=== PATIENT | male | born 1965 | race Caucasian/White ===

== ENCOUNTER 2021-06-10 17:10 | Emergency (ER) | payer BC ==
[~2021-06-10] VITALS: Ht 185 cm; Wt 97.0 kg
--- OUTSIDE RECORDS SUMMARY | 2021-06-10 17:16 | XMS REPORT | Encounter Summary ---
Author Author [facility] Organization [facility] Address Unknown Phone Unavailable Care Team Providers Care Public Address System Operator Name Role Phone Tatyana Scales MD PCP Encounter Details Care Team Description Date [place] [address] [place] [address] [address] [place], [place] [phone] Mixed hyperlipidemia; Low serum vitamin B12; Fatigue, unspecified type; Prediabetes; Low testosterone; Routine screening for STI (sexually transmitted infection) 05/05/2021 Lab [facility] [address] [place] [id number] Social History Date Tobacco Use Types Packs/Day Years Used Never Smoker Smokeless Tobacco: Former Quit: 06/21/2015 User Comments Alcohol Use Standard Drinks/Week Yes 0 (1 standard drink = 0.6 o z pure alcohol) Sex Assigned at Date Recorded Not on file documented as of this encounter Plan of Treatment Care Team Description Date Type Specialty Beni Gleaosn MD [address] [facility] [address] [place] [address] 06/29/2021 Office Visit Pulmonology Tatyana Scales MD [address] [facility] [address] [place], [place] [phone] 09/14/2021 Imaging Radiology Appointment Tatyana Scales MD [address] [facility] [address] [place], [place] [phone] 11/06/2021 Office Visit Primary Care documented as of this encounter Procedures Comments Procedure Name Priority Date/Time Associated Diag nosis TESTOSTERONE Routine 05/05/2021 Low testosteron e TOTAL+BIOAVAILABLE 9:36 AM MANAGED [employer] SALES CONSULTANT HSV TYPE 1 AND 2-SPECIFIC Routine 05/05/2021 Rout ine screening for STI IGG 9:36 AM MANAGED SEC[employer] SALES CONSULTANT (sexually transmitt ed infection) VITAMIN D, 25-HYDROXY Routine 05/05/2021 Fatigue, unspecified type 9:36 AM MANAGED SECURITY SALES CONSULTANT THYROID STIMULATING Routine 05/05/2021 Fatigue, u nspecified type HORMONE 9:36 AM MANAGED SECURITY SALES CONSULTANT RAPID PLASMA REAGIN Routine 05/05/2021 Routine sc reening for STI 9:36 AM MANAGED SECURITY SALES CONSULTANT (sexually transmitted infection) PSA SCREEN Routine 05/05/2021 Low testosteron e 9:36 AM MANAGED SECURITY SALES CONSULTANT LIPID PANEL Routine 05/05/2021 Mixed hyperlipi demia 9:36 AM MANAGED SECURITY SALES CONSULTANT HEPATITIS C ANTIBODY Routine 05/05/2021 Routine s creening for STI 9:36 AM MANAGED SECURITY SALES CONSULTANT (sexually transmitted infection) HEPATITIS B SURFACE Routine 05/05/2021 Routine sc reening for STI ANTIGEN 9:36 AM MANAGED SECURITY SALES CONSULTANT (sexually transmitt ed infection) HEPATITIS B SURFACE Routine 05/05/2021 Routine sc reening for STI ANTIBODY 9:36 AM MANAGED SECURITY SALES CONSULTANT (sexually transmitt ed infection) HEMOGLOBIN A1C Routine 05/05/2021 Prediabetes 9:36 AM MANAGED SECURITY SALES CONSULTANT COMPREHENSIVE METABOLIC Routine 05/05/2021 Fatigu e, unspecified type PANEL 9:36 AM MANAGED SECURITY SALES CONSULTANT COMPLETE BLOOD COUNT Routine 05/05/2021 Fatigue, unspecified type 9:36 AM MANAGED SECURITY SALES CONSULTANT CHLAMYDIA AND NEISSERIA Routine 05/05/2021 Routin e screening for STI GONORRHOEAE PCR 9:36 AM MANAGED SECURITY SALES CONSULTANT (sexually transmitt ed infection) B12/FOLATE Routine 05/05/2021 Low serum vitam in B12 9:36 AM MANAGED SECURITY SALES CONSULTANT documented in this encounter Results * Testosterone Total+Bioavailable (05/05/2021 9:36 AM MANAGED SECURITY SALES CONSULTANT) Testosterone 55 (L) ng/dL [facility] Bioavailable Comment: Reference Range: Males (50 - 69y): 95 - 285 Testosterone 29.8 % [facility] Bioavailable % Testosterone 186 (L) ng/dL [facility] Total Comment: This test was developed and its performance characteristics determined by [facility]. It has not been cleared or approved by the Food and Drug Administration. Reference Range: Adult Males >18 years 264 - 916 This [facility] LC/MS-MS method is currently certified by the CDC Hormone Standardization Program (HoST). Adult male reference interval is based on a population of healthy nonobese males (BMI <30) between 19 and 39 years old. Candace et.al. JCEM 2017,102;4116-4568 PMID: [id number]. Specimen Blood - Venous Narrative [facility] - 05/14/2021 10:07 AM MANAGED SECURITY SALES CONSULTANT Performed at: 01 - [facility] [address] [place] [id number] [employer] Supervisor: Juan Manuel Braxton MD, Phone: [phone] Performing Organization Address City/State/ZIP Code apoorva Number [facility] [address] [place], [place] [address] * Chlamydia and Neisseria gonorrhoeae PCR (05/05/2021 9:36 AM MANAGED SECURITY SALES CONSULTANT) Chlamydia Not Detected Not Detected [facility] trachomatis PCR Neisseria Not Detected Not Detected [facility] gonorrhoeae PCR SOURCE Urine [facility] Specimen Urine - Urine Narrative [facility] - 05/06/2021 2:01 PM MANAGED SECURITY SALES CONSULTANT This test was developed and its performance characteristics determined by [facility]. It has not been cleared or approved by the US Food and Drug Administration (FDA). This test is used for clinical purposes. It should not be regarded as investigational or for research. The laboratory is regulated under CLIA as qualified to perform high-complexity testing and accredited by the [employer] [place] [employer] (CAP). This test was developed and its performance characteristics determined by [facility]. It has not been cleared or approved by the [place] Food and Drug Administration (FDA). This test is used for clinical purposes. It should not be regarded as investigational or for research. The laboratory is regulated under CLIA as qualified to perform high-complexity testing and accredited by the [employer] [place] [employer] (CAP). Performing Organization Address City/[facility] Code P apoorva Number [id number] [phone] * Rapid Plasma Reagin (05/05/2021 9:36 AM MANAGED SECURITY SALES CONSULTANT) Pathologist [facility] RPR Nonreactive Nonreactive [facility] Specimen Blood - Venous Performing Organization Address [facility] P apoorva Number [facility] [address] [phone] * HSV Type 1 and 2-Specific IgG (05/05/2021 9:36 AM MANAGED SECURITY SALES CONSULTANT) Pathologist [facility] HSV 2 IgG Type 15.40 (H) 0.00 - 0.90 index [facility] Specific Comment: Negative <0.91 Equivocal 0.91 - 1.09 Positive >1.09 Note: Negative indicates no antibodies detected to HSV-2. Equivocal may suggest early infection. If clinically appropriate, retest at later date. Positive indicates antibodies detected to HSV-2. HSV 1 IgG Type <0.91 0.00 - 0.90 index [facility] Specific Comment: Negative <0.91 Equivocal 0.91 - 1.09 Positive >1.09 Note: Negative indicates no antibodies detected to HSV-1. Equivocal may suggest early infection. If clinically appropriate, retest at later date. Positive indicates antibodies detected to HSV-1. Specimen Blood - Venous Narrative [facility] - 05/08/2021 4:07 PM MANAGED SECURITY SALES CONSULTANT Performed at: 01 - [address] [id number] [employer] Supervisor: Olivia Linn MD, Phone: [phone] Performing Organization Address [facility]/ZIP Code P apoorva Number [facility] [address] [place] [address] * Hepatitis C Antibody (05/05/2021 9:36 AM MANAGED SECURITY SALES CONSULTANT) Pathologist [facility] Hepatitis C Ab Nonreactive Nonreactive [facility] Specimen Blood - Venous Performing Organization Address [facility] Code P apoorva Number [facility] [address] [place], [place] [address] * Hepatitis B Surface Antigen (05/05/2021 9:36 AM MANAGED SECURITY SALES CONSULTANT) Hepatitis B Nonreactive Nonreactive [facility] Surface Ag Specimen Blood - Venous Performing Organization Address [facility] P apoorva Number [facility] [address] [place], [place] [address] * Hepatitis B Surface Antibody (05/05/2021 9:36 AM MANAGED SECURITY SALES CONSULTANT) Hepatitis B Nonreactive Nonreactive [facility] Surface Ab Specimen Blood - Venous Performing Organization Address [facility] P apoorva Number [facility] [address] [phone] * PSA Screen (05/05/2021 9:36 AM MANAGED SECURITY SALES CONSULTANT) PSA Screen 0.56 0.00 - 4.00 ng/mL [facility] Specimen Blood Narrative [facility] - 05/05/2021 9:25 PM MANAGED SECURITY SALES CONSULTANT Method for [facility] is [employer]. Performing Organization Address [facility] P apoorva Number [facility] [address] [phone] * Vitamin D, 25-Hydroxy (05/05/2021 9:36 AM MANAGED SECURITY SALES CONSULTANT) Vitamin D 23 (L) 30 - 100 ng/mL [facility] 25-Hydroxy Specimen Blood - Venous Narrative [facility] - 05/05/2021 7:33 PM MANAGED SECURITY SALES CONSULTANT Vitamin D Ref Range =>21 Years Deficiency: <20 ng/mL Insufficiency: 20 - <30 ng/mL Sufficiency: 30 - 100 ng/mL Toxicity Possible: >100 ng/mL Performing Organization Address [facility] P apoorva Number [facility] [id number] [phone] * Thyroid Stimulating Hormone (05/05/2021 9:36 AM MANAGED SECURITY SALES CONSULTANT) Thyroid 2.21 0.55 - 4.78 uIU/mL [facility] Stimulating Hormone Specimen Blood - Venous Narrative [facility] - 05/05/2021 8:04 PM MANAGED SECURITY SALES CONSULTANT Reference range updated 04/05/21 with [facility] conversion to [employer] instrumentation. Performing Organization Address [facility] Code P apoorva Number [facility] [address] [place], [place] [address] * Hemoglobin A1C (05/05/2021 9:36 AM MANAGED SECURITY SALES CONSULTANT) Hemoglobin A1C 5.6 4.0 - 5.6 % [facility] Specimen Blood - Venous Performing Organization Address City/State/ZIP Code P apoorva Number [facility] [address] [place], [place] [address] * Comprehensive Metabolic Panel (05/05/2021 9:36 AM MANAGED SECURITY SALES CONSULTANT) Sodium 140 136 - 145 mEq/L [facility] Potassium 4.6 3.4 - 5.1 mEq/L [facility] Chloride 108 (H) 98 - 107 mEq/L [facility] Carbon Dioxide 26 20 - 31 mEq/L [facility] Anion Gap 6 5 - 17 mmol/L [facility] Anion Gap 6 mmol/L [facility] Calcium 9.2 8.3 - 10.6 mg/dL [facility] Glucose 89 70 - 100 mg/dL [facility] Protein Total 6.8 5.7 - 8.2 g/dL [facility] Serum Albumin 4.7 3.5 - 5.0 g/dL [facility] Alkaline 117 (H)Comment: Reference 46 - 116 U/L [facility] Phosphatase range updated 04/05/21 with [facility] conversion to [employer] instrumentation. Alanine 34 0 - 49 U/L [facility] Aminotransferas e Aspartate 27Comment: Reference range 0 - 34 U/L [facility] L Aminotransferas updated 04/05/21 with [facility] e conversion to [employer] instrumentation. Bilirubin Total 0.70 0.30 - 1.20 mg/dL [facility] Blood Urea 22 9 - 23 mg/dL [facility] Nitrogen Creatinine 1.00 0.70 - 1.30 mg/dL [facility] eGFR Female AA 69.5 60.0 - 200.0 [facility] mL/min/1.73m*2 eGFR Female 57.4 (L) 60.0 - 200.0 [facility] Non-AA mL/min/1.73m*2 eGFR Male AA 93.7 60.0 - 200.0 [facility] mL/min/1.73m*2 eGFR Male 77.3 60.0 - 200.0 [facility] Non-AA mL/min/1.73m*2 Specimen Blood - Venous Performing Organization Address [facility] P apoorva Number [facility] [address] [phone] * Complete Blood Count (05/05/2021 9:36 AM MANAGED SECURITY SALES CONSULTANT) WBC 4.68 4.00 - 11.00 TH/uL [facility] RBC 4.92 4.31 - 5.84 mil/uL [facility] Hemoglobin 14.9 13.0 - 17.0 g/dL [facility] Hematocrit 45 40 - 50 % [facility] MCV 92 80 - 99 fL [facility] MCH 30 27 - 34 pg [facility] MCHC 33 32 - 36 % [facility] RDW 14.0 9.0 - 14.5 % [facility] Platelet Count 276 140 - 400 Th/uL [facility] MPV 8.8 (L) 9.4 - 12.3 fL [facility] Nucleated RBCs 0 0 - 0 /100 WBC [facility] Specimen Blood - Venous Performing Organization Address [facility] P apoorva Number [facility] [address] [phone] * B12/Folate (05/05/2021 9:36 AM MANAGED SECURITY SALES CONSULTANT) Vitamin B12 608 211 - 911 pg/mL [facility] Folate 10.65 5.38 - 24.00 ng/mL [facility] Specimen Blood - Venous Performing Organization Address [facility] P apoorva Number [facility] [address] [phone] * Lipid Panel (05/05/2021 9:36 AM MANAGED SECURITY SALES CONSULTANT) Cholesterol 293 (H) 100 - 200 mg/dL [facility] HDL Cholesterol 47.0Comment: Reference range 40.0 - 60.0 mg/d L [facility] updated 04/05/21 with [facility] conversion to [employer] instrumentation. Non-HDL 246 (H) 0 - 130 mg/dL [facility] Cholesterol Triglycerides 104 0 - 150 mg/dL [facility] LDL Cholesterol 225.2 (H) 0 - 99 mg/dL [facility] Cholesterol/HDL 6.2 (H) 0.0 - 4.5 [facility] Ratio Hours 12 H [facility] Postprandial Specimen Blood - Venous Performing Organization Address [facility]/ZIP Code P apoorva Number [facility] [address] [place], [place] [address] documented in this encounter Visit Diagnoses Diagnosis Mixed hyperlipidemia Low serum vitamin B12 Fatigue, unspecified type Prediabetes Other abnormal glucose Low testosterone Routine screening for STI (sexually tra nsmitted infection) Screening examination for venereal dise ase documented in this encounter Care Teams Start Date End Date Public Address System Operator Relationship Specialty 10/12/17 Tatyana Scales MD PCP - [facility] [address] [address] documented as of this encounter
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
--- OUTSIDE RECORDS SUMMARY | 2021-06-10 17:16 | XMS REPORT | Clinical Summary ---
Author Author [facility] Address Unknown Phone Unavailable Care Team Providers Care Senior Industrial Engineer Name Role Phone Tatyana Scales MD PCP Allergies No known active allergies Medications End Date Status Medication Sig Dispensed Refills Start Date Active CONTINUOUS POSITIVE nightly. 0 AIRWAY PRESSURE, CPAP, Active CIALIS 20 mg Take 1 tablet 8 tablet 11 tabletIndications: Other (20 mg total) 9 male erectile dysfunction by mouth daily as needed for erectile dysfunction. Active testosterone (ANDROGEL) 1 APPLY 1 0 03/14 % (50 mg/5 gram) GlPk PACKET 0 Tube TOPICALLY ONCE DAILY Active aspirin 81 MG EC tablet Take 81 mg by 0 mouth daily. Active omeprazole (PRILOSEC) 10 Take 10 mg by 0 MG capsule mouth daily. Active esomeprazole (NEXIUM) 20 0 MG capsuleIndications: Erosive esophagitis 05/05/2022 Active valACYclovir (VALTREX) Take 1 tablet 90 tablet 3 1 500 MG tabletIndications: (500 mg 1 CHRONIC SUPPRESSIVE total) by TREATMENT OR PROPHYLAXIS, mouth daily. GENITAL HERPES 05/05/2022 Active tamsulosin (FLOMAX) 0.4 Take 1 90 capsule 3 mg capIndications: Lower capsule (0.4 1 urinary tract symptoms mg total) by mouth daily. Active benzonatate (TESSALON) Take 1-2 90 capsule 0 100 MG capsule capsules 1 (100-200 mg total) by mouth 3 (three) times a day as needed for cough. Active ergocalciferol (VITAMIN Take 1 12 capsule 0 D2) 1,250 mcg (50,000 capsule 1 unit) capsuleIndications: (50,000 Units Low vitamin D level total) by mouth weekly. Active rosuvastatin (CRESTOR) 10 Take 1 tablet 90 tablet 3 MG tabletIndications: (10 mg total) 1 Mixed hyperlipidemia by mouth daily. Active Problems Problem Noted Date Personal history of COVID-19 05/11/2021 Overview: Formatting of this note might be differ ent from the original. Apr 2021 Lower urinary tract symptoms 05/05/2021 Statin declined 05/05/2020 Class 1 obesity due to excess calories with serious c omorbidity and body 05/07/2019 mass index (BMI) of 31.0 to 31.9 in twin lt Last Assessment & Plan: Formatting of this note might be differ ent from the original. Encouraged healthy diet, exercise and w eight loss. Lesion of skin of scalp 05/07/2019 Overview: Formatting of this note might be differ ent from the original. Left scalp with ~1cm flesh colored hype rkeratotic lesion L ast Assessment & Plan: Formatting of this note might be differ ent from the original. Proceed with continued observation - re check in 6 months - if changing plan for cryotherapy. Prediabetes 11/08/2018 Last Assessment & Plan: Formatting of this note might be differ ent from the original. Encouraged healthy diet, exercise and w eight loss. Primary osteoarthritis of left knee 11/03/2018 Overview: Formatting of this note might be differ ent from the original. MRI August 2018 showed tricompartmental OA. Received steroid injection but patient didn't think it helped. Unable to take oral NSAIDs d/t esophagitis. Has seen ortho x2 L ast Assessment & Plan: Formatting of this note might be differ ent from the original. Trial topical diclofenac gel Patient requests 2nd orthopedic opinion - requesting referral to Dr. Roberto Sabillon - referral placed Erosive esophagitis 07/24/2018 Overview: Formatting of this note might be differ ent from the original. EGD 06/23/18 - Grade 2 esophagitis in t he gastroesophageal junction compatible with esophagitis. Ring in the gastroesophageal junction. (Biopsy). Prilosec 40mg po q am befor e meal x 2 mos. 3- Zantac 300mg po qhs x 2 mos EGD 09/22/18 - Normal mucosa in the whol e esophagus. Few Aspirin-induced superficial erosions in fundus and prox imal body w/o bleeding. Plan: 1- Reduce the dose of Prilosec to 20mg po qd + Zantac 150mg po qhs. L ast Assessment & Plan: Formatting of this note might be differ ent from the original. Patient reports symptoms improved Idiopathic peripheral neuropathy 06/01/2018 Overview: Formatting of this note might be differ ent from the original. He has seen neurology (May 2018) for hi s neuropathy, refuses to take Cymbalta. Previously on Gabapentin but didn't feel it was helpful. L ast Assessment & Plan: Formatting of this note might be differ ent from the original. Patient declines Cymbalta. Previously o n Gabapentin but didn't feel it was helpful. Continue to monitor Bilateral low back pain with bilateral sciatica 05/14 Overview: Formatting of this note is different fr om the original. Lumbar MRI 06/30/18 1. No spinal canal stenosis. 2. Multilevel disc disease and facet ar throsis resulting in multilevel variable neural foraminal stenosis as d etailed above. No high-grade neural foraminal stenosis. L ast Assessment & Plan: Formatting of this note might be differ ent from the original. Stable History of shingles 02/08/2018 Last Assessment & Plan: Formatting of this note might be differ ent from the original. Recommended Shingrix Low serum vitamin B12 12/08/2017 Last Assessment & Plan: Formatting of this note might be differ ent from the original. Patient states he is no longer taking s upplementation NELLI on CPAP 12/08/2017 Overview: Formatting of this note might be differ ent from the original. Following with Dr. Stark in pulmonology L ast Assessment & Plan: Formatting of this note might be differ ent from the original. Referred to pulmonology Vasovagal syncope 11/30/2017 Last Assessment & Plan: Formatting of this note might be differ ent from the original. No recent episodes History of seizures as a child 11/30/2017 Last Assessment & Plan: Formatting of this note might be differ ent from the original. H/O seizure in childhood. Last reported seizure ~ 40 yrs ago. Described as having grand-mal features. Never medica mily. Underlying cause was never determined. Low testosterone 10/12/2017 Last Assessment & Plan: Formatting of this note might be differ ent from the original. Referred to urology Mixed hyperlipidemia 10/12/2017 Overview: Formatting of this note might be differ ent from the original. The 10-year ASCVD risk score (Juancho mansfield, et al., 2013) is: 9.9% Values used to calculate the score: Age: 55 years Sex: Male Is Non- : No Diabetic: No Tobacco smoker: No Systolic Blood Pressure: 128 mmHg Is BP treated: No HDL Cholesterol: 34 mg/dL Total Cholesterol: 246 mg/dL Last Assessment & Plan: Formatting of this note might be differ ent from the original. Declines statin Other male erectile dysfunction 10/12/2017 Resolved Problems Problem Noted Date Resolved Date Nausea, vomiting and diarrhea 11/30/2017 12/01/19 18 Last Assessment & Plan: Formatting of this note might be differ ent from the original. Sudden onset of acute GI abnormalities. No hematemesis, melena or hematochezia. Plan - GI pathogen panel pending - Anti-emetics (no diarrhea or vomiting since admission) - E-lyte replacement protocol - IVF Bradycardia 11/30/2017 11/30/2017 Last Assessment & Plan: Formatting of this note might be differ ent from the original. Bradycardia w/ a syncopal event, vasova gal vs cardiogenic ? May need to potentially consider cardio logy evaluation, to be re-evaluated in am after patient is hydrated and see n by neurology Encounters Care Team Description Date Type Specialty Marifer Boss, atm manager Refill 05/13/2021 Refill Primary Care Marifer Boss RN 05/12/2021 Telephone Primary Care Marifer Boss RN 05/11/2021 Telephone Primary Care Tatyana Scales MD Mixed hyperlipidemia; Low serum vitamin B12; Fatigue, unspecified type; Prediabetes; Low testosterone; Routine screening for STI (sexually transmitted infection) 05/05/2021 Lab Lab Tatyana Scales MD Cough (Primary Dx); Mixed hyperlipidemia; Idiopathic peripheral [...] Erosive esophagitis; Vaccine counseling 05/05/2021 Office Visit Primary Care Beni Gleason MD 04/13/2021 Telephone Pulmonology from Last 3 Months Immunizations Name Administration Dates Next Due Tdap 10/12/2016 Family History Medical History Relation Name Comments Diabetes Brother Heart disease Brother Kidney disease Brother Heart disease Father Heart disease Mother Kidney disease Sister Relation Name Status Comments Brother Father Mother Sister Social History Date Tobacco Use Types Packs/Day Years Used Never Smoker Smokeless Tobacco: Former Quit: 06/21/2015 User Comments Alcohol Use Standard Drinks/Week Yes 0 (1 standard drink = 0.6 o z pure alcohol) Sex Assigned at Date Recorded Not on file Last Filed Vital Signs Reading Time Taken Comments Vital Sign 118/86 05/05/2021 8:01 AM FAST BRIM POUNCER Blood Pressure 74 05/05/2021 8:01 AM FAST BRIM POUNCER Pulse 36.2 C (97.2 F) 11/03/2020 8:03 AM CDT Temperature 16 01/21/2021 9:43 AM CDT Respiratory Rate 98% 05/05/2021 8:01 AM FAST BRIM POUNCER Oxygen Saturation - - Inhaled Oxygen Concentration 108.9 kg (240 lb) 05/05/2021 8:01 AM FAST BRIM POUNCER Weight 185.4 cm (6' 1") 05/05/2021 8:01 AM FAST BRIM POUNCER Height 31.66 05/05/2021 8:01 AM FAST BRIM POUNCER Body Mass Index Plan of Treatment Care Team Description Date Type Specialty Beni Gleason MD [address] [facility] [address] [place] [address] 06/29/2021 Office Visit Pulmonology Tatyana Scales MD [address] [place] [address] 09/14/2021 Imaging Radiology Appointment Tatyana Scales MD [address] [place] [address] 11/06/2021 Office Visit Primary Care Health Maintenance Due Date Last Done Comments CLAIR-19 Vaccine (1) 1977 Zoster Vaccine# (1 of 2) 2015 EGD 12/22/2018 09/22/2018, 06/23/2018 Influenza Vaccine (#1) 2021 Colorectal Screening via 11/11/2022 11/11/2017, Colonoscopy 11/11/2017 Td/Tdap# 10/12/2026 10/12/2016 Hepatitis C Screen Completed 05/05/2021, 11/03/2018 Pneumococcal Vaccine: Aged Out No longer eligib le based on patient's age to Pediatrics (0 to 5 Years) complete this topic and At-Risk Patients (6 to 64 Years) Procedures Comments Procedure Name Priority Date/Time Associated Diag nosis TESTOSTERONE Routine 05/05/2021 Low testosteron e TOTAL+BIOAVAILABLE 9:36 AM FAST BRIM POUNCER CHLAMYDIA AND NEISSERIA Routine 05/05/2021 Routin e screening for STI GONORRHOEAE PCR 9:36 AM FAST BRIM POUNCER (sexually transmitt ed infection) RAPID PLASMA REAGIN Routine 05/05/2021 Routine sc reening for STI 9:36 AM FAST BRIM POUNCER (sexually transmitted infection) HSV TYPE 1 AND 2-SPECIFIC Routine 05/05/2021 Rout ine screening for STI IGG 9:36 AM FAST BRIM POUNCER (sexually transmitt ed infection) HEPATITIS C ANTIBODY Routine 05/05/2021 Routine s creening for STI 9:36 AM FAST BRIM POUNCER (sexually transmitted infection) HEPATITIS B SURFACE Routine 05/05/2021 Routine sc reening for STI ANTIGEN 9:36 AM FAST BRIM POUNCER (sexually transmitt ed infection) HEPATITIS B SURFACE Routine 05/05/2021 Routine sc reening for STI ANTIBODY 9:36 AM FAST BRIM POUNCER (sexually transmitt ed infection) PSA SCREEN Routine 05/05/2021 Low testosteron e 9:36 AM FAST BRIM POUNCER VITAMIN D, 25-HYDROXY Routine 05/05/2021 Fatigue, unspecified type 9:36 AM FAST BRIM POUNCER THYROID STIMULATING Routine 05/05/2021 Fatigue, u nspecified type HORMONE 9:36 AM FAST BRIM POUNCER HEMOGLOBIN A1C Routine 05/05/2021 Prediabetes 9:36 AM FAST BRIM POUNCER COMPREHENSIVE METABOLIC Routine 05/05/2021 Fatigu e, unspecified type PANEL 9:36 AM FAST BRIM POUNCER COMPLETE BLOOD COUNT Routine 05/05/2021 Fatigue, unspecified type 9:36 AM FAST BRIM POUNCER B12/FOLATE Routine 05/05/2021 Low serum vitam in B12 9:36 AM FAST BRIM POUNCER LIPID PANEL Routine 05/05/2021 Mixed hyperlipi demia 9:36 AM FAST BRIM POUNCER HERPES I & II - ON BD-MAX Routine 05/05/2021 Melody iza lesion, male SWAB 9:27 AM FAST BRIM POUNCER from Last 3 Months Results * Testosterone Total+Bioavailable (05/05/2021 9:36 AM FAST BRIM POUNCER) Testosterone 55 (L) ng/dL [facility] Bioavailable Comment: [...] <30) between 19 and 39 years old. Candace, et.al. JCEM 2017,102;[id number] PMID: [id number]. Specimen Blood - Venous Narrative [facility] - 05/14/2021 10:07 AM FAST BRIM POUNCER Performed at: 01 - [facility] [address] [place] [id number] Filler Shredder Machine: Juan Manuel Braxton MD, Phone: [phone] Performing Organization Address City/State/ZIP Code P apoorva Number [facility] [address] [address] 20 * HSV Type 1 and 2-Specific IgG (05/05/2021 9:36 AM FAST BRIM POUNCER) Pathologist [facility] HSV 2 IgG Type 15.40 (H) 0.00 [...] Venous Narrative [facility] - 05/08/2021 4:07 PM FAST BRIM POUNCER Performed at: [address] [place] [id number] Filler Shredder Machine: Olivia Linn MD, Phone: [phone] Performing Organization Address [facility]/ZIP Code P apoorva Number [id number] [address] [address] 20 * Vitamin D, 25-Hydroxy (05/05/2021 9:36 AM FAST BRIM POUNCER) [facility] Vitamin D 23 (L) 30 - 100 ng/mL [facility] 25-Hydroxy Specimen Blood - Venous Narrative [facility] - 05/05/2021 7:33 PM FAST BRIM POUNCER Vitamin D Ref Range =>21 Years Deficiency: <20 ng/mL Insufficiency: 20 - <30 ng/mL Sufficiency: 30 - 100 ng/mL Toxicity Possible: >100 ng/mL Performing Organization Address [facility] Code P apoorva Number [id number] [place], [place] [address] * Thyroid Stimulating Hormone (05/05/2021 9:36 AM FAST BRIM POUNCER) Pathologist [facility] Thyroid 2.21 0.55 - 4.78 uIU/mL [facility] Stimulating Hormone Specimen Blood - Venous Narrative [facility] - 05/05/2021 8:04 PM FAST BRIM POUNCER Reference range updated 04/05/21 with [facility] conversion to [employer] instrumentation. Performing Organization Address City/[facility] Code P apoorva Number [id number] [place], [place] [address] * Rapid Plasma Reagin (05/05/2021 9:36 AM FAST BRIM POUNCER) RPR Nonreactive Nonreactive [facility] Specimen Blood - Venous Performing Organization Address [facility] P apoorva Number [id number] [place], [place] [address] * PSA Screen (05/05/2021 9:36 AM FAST BRIM POUNCER) PSA Screen 0.56 0.00 - 4.00 ng/mL [facility] Specimen Blood Narrative [facility] - 05/05/2021 9:25 PM FAST BRIM POUNCER Method for [facility] is [employer]. Performing Organization Address [facility] P apoorva Number [id number] [place], [place] [address] * Lipid Panel (05/05/2021 9:36 AM FAST BRIM POUNCER) Cholesterol 293 (H) 100 - 200 mg/dL [facility] HDL Cholesterol 47.0Comment: Reference range 40.0 - 60.0 mg/d L [facility] updated 04/05/21 with HS conversion to [employer] instrumentation. Non-HDL 246 (H) 0 - 130 mg/dL [facility] Cholesterol Triglycerides 104 0 - 150 mg/dL [facility] LDL Cholesterol 225.2 (H) 0 - 99 mg/dL [facility] Cholesterol/HDL 6.2 (H) 0.0 - 4.5 [facility] Ratio Hours 12 H [facility] Postprandial Specimen Blood - Venous Performing Organization Address [facility] Code P apoorva Number [id number] [place], [place] [address] * Hepatitis C Antibody (05/05/2021 9:36 AM FAST BRIM POUNCER) Hepatitis C Ab Nonreactive Nonreactive [facility] Specimen Blood - Venous Performing Organization Address [facility] Code P apoorva Number [id number] [place], [place] [address] * Hepatitis B Surface Antigen (05/05/2021 9:36 AM FAST BRIM POUNCER) Hepatitis B Nonreactive Nonreactive [facility] Surface Ag Specimen Blood - Venous Performing Organization Address [facility]/ZIP Code P apoorva Number [id number] [address] [place], [place] [address] * Hepatitis B Surface Antibody (05/05/2021 9:36 AM FAST BRIM POUNCER) Hepatitis B Nonreactive Nonreactive [facility] Surface Ab Specimen Blood - Venous Performing Organization Address City/[facility] Code P apoorva Number [id number] [place], [place] [address] * Hemoglobin A1C (05/05/2021 9:36 AM FAST BRIM POUNCER) Hemoglobin A1C 5.6 4.0 - 5.6 % [facility] Specimen Blood - Venous Performing Organization Address City/[facility] P apoorva Number [facility] [address] [place] [address] 11 * Comprehensive Metabolic Panel (05/05/2021 9:36 AM FAST BRIM POUNCER) Sodium 140 136 - 145 mEq/L [facility] [...] U/L [facility] Phosphatase range updated 04/05/21 with [facility] conversion to Siem[employer] [address] instrumentation. Alanine 34 0 - 49 U/L [facility] Aminotransferas e Aspartate 27Comment: Reference range 0 - 34 U/L [facility] L Aminotransferas updated 04/05/21 with [facility] e conversion to [employer] instrumentation. [...] Specimen Blood - Venous Performing Organization Address City/[facility]/ZIP Code P [facility] Number [facility] [address] [place] [address] 11 * Complete Blood Count (05/05/2021 9:36 AM FAST BRIM POUNCER) WBC 4.68 4.00 - 11.00 TH/uL [facility] [...] Specimen Blood - Venous Performing Organization Address City/[facility] Code P [facility] Number [facility] [address] [place] [address] 11 * Chlamydia and Neisseria gonorrhoeae PCR (05/05/2021 9:36 AM FAST BRIM POUNCER) Chlamydia Not Detected Not Detected [facility] trachomatis PCR Neisseria Not Detected Not Detected [facility] gonorrhoeae PCR SOURCE Urine [facility] Specimen Urine - Urine Narrative [facility] - 05/06/2021 2:01 PM FAST BRIM POUNCER This test was developed and its performance characteristics determined by [facility]. It has not been cleared or approved by the US Food and Drug Administration (FDA). This test is used for clinical purposes. It should not be regarded as investigational or for research. The laboratory is regulated under CLIA as qualified to perform high-complexity testing and accredited by the [employer] (CAP). This test was developed and its performance characteristics determined by [facility]. It has not been cleared or approved by the [place] Food and Drug Administration (FDA). This test is used for clinical purposes. It should not be regarded as investigational or for research. The laboratory is regulated under CLIA as qualified to perform high-complexity testing and accredited by the [employer] (CAP). Performing Organization Address City/State/ZIP Code P apoorva Number [facility] [address] [place], [place] [address] * B12/Folate (05/05/2021 9:36 AM FAST BRIM POUNCER) Vitamin B12 608 211 - 911 pg/mL [facility] Folate 10.65 5.38 - 24.00 ng/mL [facility] Specimen Blood - Venous Performing Organization Address City/State/ZIP Code P apoorva Number [facility] [address] [place] [address] 11 * HERPES I & II - ON BD-MAX SWAB (05/05/2021 9:27 AM FAST BRIM POUNCER) Specimen Penis Narrative [facility] - 05/08/2021 7:32 AM FAST BRIM POUNCER MOLECULAR PATHOLOGY REPORT HSV 1 and 2 by Sarah Case #: [id number] Final: 05/08/2021 PatientProviPHILLIP CheungDOB: 1965 (Age: 56) M Phone:Outside ID # ([id number]):[id number] By:Tatyana Scales M.D.Collected:05/05/2021 Received:05/06/2021[facility] HSV-1 AND HSV-2 PCR HSV-1 DNA NOT [...] and its performance characteristics determined by the [facility] Molecular Laboratory. It has not been [...] high complexity clinical laboratory testing. Performed by: [facility], [address] [place] [address], CLIA [id number] Nelson Feliciano MT (ASCP) CM Report Electronically Signed Out By Specimen Received: HSV 1 and 2 Performing Organization Address City/State/ZIP Code P apoorva Number [facility] [address] [place], [place] [address] [address] from Last 3 Months Insurance Type Payer Benefit Subscriber ID Effective Phone Address Plan / Dates Group [facility] OUT OF [id number] 2004-P [id number] [place] [address] 6 Phillip Escobar Personal/F Self 1965 [address] (Home) [place], [place] [address] Phillip Escobar Personal/F Self 1965 [address] [place] (Home) [place] [address] 6 Advance Directives For more information, please contact: [phone] Patient Automobile Wrecker Explanation Type Date Recorded Advance Directives and Living Will Power of Labor Crew Supervisor Health Care Directive Date Inactivated Comments Code Status Date Activated 09/22/2018 10:37 AM Full Code 09/22/2018 7:37 AM 06/23/2018 6:05 PM Full Code 06/23/2018 2:09 PM 11/30/2017 7:31 PM Full Code 11/30/2017 5:32 AM Care Teams Start Date End Date Senior Industrial Engineer Relationship Specialty 10/12/17 Tatyana Scales MD PCP - General Family [id number] [facility] [address] [place], [place] [address]
--- OUTSIDE RECORDS SUMMARY | 2021-06-10 17:16 | XMS REPORT | Encounter Summary ---
Author Author [facility] Organization [facility] Address Unknown Phone Unavailable Care Team Providers Care Machine Sole Leveler Name Role Phone Tatyana Scales MD PCP Encounter Details Care Team Description Date Type Department Marifer Boss RN 05/11/2021 Telephone [facility] Primar y Care - [place] [employer] [address] [facility] [address] [place] [address] Social History Date Tobacco Use Types Packs/Day Years Used Never Smoker Smokeless Tobacco: Former Quit: 06/21/2015 User Comments Alcohol Use Standard Drinks/Week Yes 0 (1 standard drink = 0.6 o z pure alcohol) Sex Assigned at Date Recorded Not on file documented as of this encounter Miscellaneous Notes * Telephone Encounter - Tatyana Scales MD - 05/11/2021 9:50 AM DIGITAL MEDIA ANALYST In non-hospitalized patients, we do not treat COVID-19 withdexamethasone,pre dnisone, or other corticosteroids Sent Rx for tessalon perles. He is eligible for monoclonal antibody treatment if he is interested. If he develops chest pain, new or worsening shortness of breath, dizziness or co nfusion he needs to go to the ER. TAL MEDIA ANALYST * Telephone Encounter - Marifer Boss RN - 05/11/2021 9:34 AM DIGITAL MEDIA ANALYST Pt calling stating he has tested positive for covid. Spoke with the pt and he stated he tested positive for covid yesterday and has a terrible cough and would like a prescription sent in of tessalon perles and dex amethasone. Let the pt know that we will get this request sent to Dr. Scales a nd will call the pt back. The pt stated he wants this sent in to his [facility] in [place], [place]. TAL MEDIA ANALYST documented in this encounter Plan of Treatment Care Team Description Date Type Specialty Beni Gleason MD [address] [facility] [address] [place] [address] 06/29/2021 Office Visit Pulmonology Tatyana Scales MD [address] [place] [address] 09/14/2021 Imaging Radiology Appointment Tatyana Scales MD [address] [place], [place] [id number] 11/06/2021 Office Visit Primary Care documented as of this encounter Visit Diagnoses Diagnosis Personal history of COVID-19 documented in this encounter Care Teams Start Date End Date Machine Sole Leveler Relationship Specialty 10/12/17 Tatyana Scales MD PCP - General [facility] [address] [facility] [address] [place], [place] [id number] documented as of this encounter
--- OUTSIDE RECORDS SUMMARY | 2021-06-10 17:16 | XMS REPORT | Encounter Summary ---
Author Author [facility] Organization [facility] Address Unknown Phone Unavailable Care Team Providers Care Illuminator Name Role Phone Tatyana Scales MD PCP Encounter Details Care Team Description Date Type Department Beni Gleason MD [address] [place] [address] 04/13/2021 Telephone [facility] [address] [facility] [place] [place] [address] Social History Date Tobacco Use Types Packs/Day Years Used Never Smoker Smokeless Tobacco: Former Quit: 06/21/2015 User Comments Alcohol Use Standard Drinks/Week Yes 0 (1 standard drink = 0.6 o z pure alcohol) Sex Assigned at Date Recorded Not on file documented as of this encounter Miscellaneous Notes * Telephone Encounter - Luz Marina Rollins - 04/13/2021 10:31 AM CDT Spoke to patient and schedule their follow up appointment with at [facility] Pulmonary in June 2021. Patient elected to come in. Phone call took 5 minutes documented in this encounter Plan of Treatment Care Team Description Date Type Specialty Beni Gleason MD [address] [place] [address] 06/29/2021 Office Visit Pulmonology Tatyana Scales MD [address] [place] [address] 09/14/2021 Imaging Radiology Appointment Tatyana Scales MD [address] [place] [address] 11/06/2021 Office Visit Primary Care documented as of this encounter Visit Diagnoses Not on filedocumented in this encounter Care Teams Start Date End Date Illuminator Relationship Specialty 10/12/17 Tatyana Scales MD PCP - General [facility] [address] [facility] [address] [place] [address] documented as of this encounter
--- OUTSIDE RECORDS SUMMARY | 2021-06-10 17:16 | XMS REPORT | Encounter Summary ---
Author Author [facility] Organization [facility] Address Unknown Phone Unavailable Care Team Providers Care Jig Builder Name Role Phone Tatyana Scales MD PCP Encounter Details Care Team Description Date Type Department Marifer Boss RN 05/12/2021 Telephone [facility] Primar y Care - [place] [address] [facility] [address] [place] [address] Social History Date Tobacco Use Types Packs/Day Years Used Never Smoker Smokeless Tobacco: Former Quit: 06/21/2015 User Comments Alcohol Use Standard Drinks/Week Yes 0 (1 standard drink = 0.6 o z pure alcohol) Sex Assigned at Date Recorded Not on file documented as of this encounter Miscellaneous Notes * Telephone Encounter - Marifer Boss RN - 05/12/2021 12:17 PM TAILER IN Spoke with the pt and advised that the orders have been faxed and to call the [facility] number per Dr. Scales and to also go to the website to read the fact s heet. The pt v/u and has no further questions. ER IN * Telephone Encounter - Tatyana Scales MD - 05/12/2021 11:44 AM TAILER IN I will complete the order form. We/he will then need to call central scheduling at [phone] to schedule the patient He needs to review the EUA facts sheet also - see link below https://www.fda.gov/media/407673/download ER IN * Telephone Encounter - Marifer Boss RN - 05/12/2021 11:34 AM TAILER IN Pt calling stating he wants to do the monoclonal antibody infusion. Spoke with the pt and asked when his symptoms started and when he tested positiv e for covid. The pt stated his symptoms started Tuesday night and he tested pos itive on Tuesday. The pt stated he if feeling terrible and wants to do the monocl onal antibody infusion. Let the pt know that I will get this information to Dr. Scales and will call him back. The pt v/u. ER IN documented in this encounter Plan of Treatment Care Team Description Date Type Specialty Beni Gleason MD [address] [facility] [address] [place] [address] 06/29/2021 Office Visit Pulmonology Tatyana Scales MD [address] [place] [address] 09/14/2021 Imaging Radiology Appointment Tatyana Scales MD [address] [place] [address] 11/06/2021 Office Visit Primary Care documented as of this encounter Visit Diagnoses Not on filedocumented in this encounter Care Teams Start Date End Date Jig Builder Relationship Specialty 10/12/17 Tatyana Scales MD PCP - General Family [address] [facility] [address] [place] [address] documented as of this encounter
--- NOTE | 2021-06-10 17:58 | ED Lower Extremity ---
General Chief Complaint: Lower Extremity Stated Complaint: RT UPPER LEG PAIN/SWELLING Nursing Triage Note: PT REPORTS RIGHT INNER THIGH PAIN AND SWELLING X 1 WEEK. Source: patient Exam Limitations: no limitations (UMA HUI MD) History of Present Illness Date Seen by Provider: Jun 10, 2021 Time Seen by Provider: 17:35 Initial Comments Here with right upper leg pain more posterior on the distal aspect. This is been going on for a week and is associated with swelling. Seen by his primary care doctor today who sent him here for ultrasound of the leg due to concerns for DVT. Patient does have history of Covid 1 month ago and is still recovering. He has been on steroids for the last 3 weeks intermittently due to persistent cough and shortness of air. More concerning, he has recently been hypoxic at home and was 79% last night. He did place his CPAP with oxygen and that did help last night. Otherwise he is not normally on oxygen. Noted to be in the upper 80s earlier today. Arrives in the 90s currently. Does have persistent cough. Denies fever or chills. Is using DuoNeb and Pulmicort at home which has been helpful although he is out of DuoNeb currently. Does not r emember any injury or inciting event for the leg pain. He is taking a baby aspirin and vitamin D daily. Onset: last week Severity: moderate Pain/Injury Location: right thigh Method of Injury: unknown Modifying Factors: Worse With Movement; Improves With Rest (UMA HUI MD) Allergies and Home Medications Allergies Coded Allergies: No Known Drug Allergies (Unverified , 06/10/21) Patient Home Medication List Home Medication List Reviewed: Yes (UMA HUI MD) Apixaban (Eliquis) 5 Mg Tablet, 5 MG PO BID Prescribed by: ALETHA HAMMER on 06/10/211950 Review of Systems Constitutional: see HPI; No chills, No fever EENTM: nose congestion, throat pain Respiratory: cough, dyspnea on exertion, short of breath, wheezing Cardiovascular: No chest pain, No edema Gastrointestinal: No nausea, No vomiting Genitourinary: other (History of prostate problems. History of decreased flow.) Musculoskeletal: No joint pain; muscle pain Skin: No change in color, No lesions Psychiatric/Neurological: No Symptoms Reported (UMA HUI MD) All Other Systems Reviewed Negative Unless Noted: Yes (UMA HUI MD) Past Twtlyrc-Yklmzw-Jiregc Hx Patient Social History Tobacco Use?: Yes Smoking Status: Former Smoker Use of E-Cig and/or Vaping dev: No Substance use?: No Alcohol Use?: No Pt feels they are or have been: No (UMA HUI MD) Past Medical History Surgery/Hospitalization HX: 3 KNEE SX, PROSTATE ENLARGEMENT, HIGH CHOLESTEROL, AND COVID ONE MONTH AGO. Surgeries: Yes Orthopedic Respiratory: Yes Pneumonia Cardiac: Yes High Cholesterol Genitourinary: Yes Benign Prostatic Hyperpl (UMA HUI MD) Family Medical History Reviewed Nursing Family Hx (UMA HUI MD) Renal Disease (UMA HUI MD) Physical Exam Vital Signs Vital Signs - First Documented 06/10/21 17:29 Temp 36.4 Pulse 114 Resp 20 B/P (MAP) 105/87 (93) Pulse Ox 95 O2 Delivery Room Air (ALETHA HAMMER) Vital Signs Capillary Refill : Less Than 3 Seconds (UMA HUI MD) Height, Weight, BMI Height: '" Weight: lbs. oz. kg; 28.00 BMI Method: General Appearance: WD/WN, no apparent distress HEENT: PERRL/EOMI, pharyngeal erythema Neck: full range of motion, supple, normal inspection Cardiovascular: no murmur, tachycardia Respiratory: no respiratory distress, no accessory muscle use, wheezing (Few tr randa lower lobe wheezes) Gastrointestinal: non tender, soft Back: normal inspection, no CVA tenderness, no vertebral tenderness Legs: left leg non-tender, left leg normal inspection, left leg normal range of motion; right leg soft tissue tenderness (Anterior and posterior lower thigh with greatest posterior aspect above the knee), right leg other (No obvious swelling currently and no lesions) Neurologic/Tendon: normal sensation, normal motor functions Neurologic/Psychiatric: alert, normal mood/affect, oriented x 3 Skin: normal color, warm/dry (UMA HUI MD) Progress/Results/Core Measures Results/Orders Lab Results Laboratory Tests Test 06/10/21 17:55 Range/Units White Blood Count 9.3 4.3-11.0 10^3/uL Red Blood Count 4.23 L 4.30-5.52 10^6/uL Hemoglobin 13.1 L 13.3-17.7 g/dL Hematocrit 37 L 40-54 % Mean Corpuscular Volume 88 80-99 fL Mean Corpuscular Hemoglobin 31 25-34 pg Mean Corpuscular Hemoglobin Concent 35 32-36 g/dL Red Cell Distribution Width 13.7 10.0-14.5 % Platelet Count 295 130-400 10^3/uL Mean Platelet Volume 8.3 L 9.0-12.2 fL Immature Granulocyte % (Auto) 2 % Neutrophils (%) (Auto) 64 42-75 % Lymphocytes (%) (Auto) 23 12-44 % Monocytes (%) (Auto) 8 0-12 % Eosinophils (%) (Auto) 3 0-10 % Basophils (%) (Auto) 0 0-10 % Neutrophils # (Auto) 6.0 1.8-7.8 X 10^3 Lymphocytes # (Auto) 2.1 1.0-4.0 X 10^3 Monocytes # (Auto) 0.7 0.0-1.0 X 10^3 Eosinophils # (Auto) 0.3 0.0-0.3 10^3/uL Basophils # (Auto) 0.0 0.0-0.1 10^3/uL Immature Granulocyte # (Auto) 0.1 0.0-0.1 10^3/uL D-Dimer 16.61 H 0.00-0.49 UG/ML Sodium Level 135 135-145 MMOL/L Potassium Level 4.0 3.6-5.0 MMOL/L Chloride Level 101 98-107 MMOL/L Carbon Dioxide Level 21 21-32 MMOL/L Anion Gap 13 5-14 MMOL/L Blood Urea Nitrogen 14 7-18 MG/DL Creatinine 0.98 0.60-1.30 MG/DL Estimat Glomerular Filtration Rate 79 BUN/Creatinine Ratio 14 Glucose Level 83 70-105 MG/DL Calcium Level 8.7 8.5-10.1 MG/DL Corrected Calcium 8.9 8.5-10.1 MG/DL Total Bilirubin 0.7 0.1-1.0 MG/DL Aspartate Amino Transf (AST/SGOT) 23 5-34 U/L Alanine Aminotransferase (ALT/SGPT) 41 0-55 U/L Alkaline Phosphatase 85 40-136 U/L C-Reactive Protein 2.11 H <0.50 MG/DL Total Protein 6.8 6.4-8.2 GM/DL Albumin 3.8 3.2-4.5 GM/DL (ALETHA HAMMER) My Orders Orders - ALETHA HAMMER Apixaban Tablet (Eliquis Tablet) (06/10/21 19:45) (ALETHA HAMMER) Medications Given in ED Current Medications Medications Dose Ordered Sig/Claudette Route Start Time Stop Time Status Last Admin Dose Admin Apixaban 5 mg ONCE ONCE PO 06/10/21 19:45 06/10/21 19:46 DC 06/10/21 19:45 5 MG Iohexol 125 ml ONCE ONCE IV 06/10/21 19:00 06/10/21 19:01 DC 06/10/21 19:07 125 ML Sodium Chloride 100 ml ONCE ONCE IV 06/10/21 19:00 06/10/21 19:01 DC 06/10/21 19:07 100 ML Sodium Chloride 1,000 ml @ 0 mls/hr Q0M ONCE IV 06/10/21 18:00 06/10/21 18:01 DC 06/10/21 17:59 1,000 MLS/HR (ALETHA HAMMER) Vital Signs/I&O 06/10/21 17:29 Temp 36.4 Pulse 114 Resp 20 B/P (MAP) 105/87 (93) Pulse Ox 95 O2 Delivery Room Air (ALETHA HAMMER) Blood Pressure Mean: 93 Progress Progress Note : Progress Note Seen and evaluated. Patient informed that we do not have ultrasound currently but I am more concerned about possible pulmonary embolism given patient's history of Covid positive and now with new hypoxia in the setting of tachycardia and shortness of breath with cough. He has been taking baby aspirin daily but his risk is still high for pulmonary embolism. We will go ahead and get IV and labs and ultimately CT of the chest with contrast for PE study. I do want to check his kidney function first due to his history of BPH and family history of kidney disease. Normal saline 1 L bolus ordered. Patient declined pain medicine. Monitor patient. (UMA HUI MD) Progress Note : Time: 19:10 Progress Note Assumed care of the patient at shift change. I agree with above documented history and physical exam. Patient is down for a CT angiogram. If pulmonary embolism is not present we would still cover him with anticoagulants and set him up for outpatient ultrasound. Vital signs are aseptic and he is maintaining oxygen saturation 98 100% on room air with nonlabored breathing. No significant discomfort at this time. (ALETHA HAMMER) Diagnostic Imaging Diagonstic Imaging: CT Plain Films/CT/US/NM/MRI: chest Comments Bilateral basilar segmental PEs with flattening of the septum suggesting right heart strain. NAME: PHILLIP ACUÑA [facility] REC#: [id number] PT STATUS: REG ER : 1965 PHYSICIAN: UMA HUI MD ADMIT DATE: 06/10/21/ER FS Signed Date of Exam:06/10/21 CT ANGIO CHEST W EXAMINATION: CT angiography of the chest. TECHNIQUE: Contrast enhanced thin section helical images were obtained through the chest with intravenous contrast timed for the optimal opacification of the arterial structures per CTA protocol. Post-processing, reconstructions and interpretation of angiographic images of the vessels was performed. 3D MIP reconstructions were performed and reviewed. All CT scans use one or more of the following dose optimizing techniques: automated exposure control, MA and/or KvP adjustment based on patient size and exam type or iterative reconstruction. HISTORY: Cough and shortness of breath, prior Covid 19. COMPARISON: None available. FINDINGS: There are segmental emboli in the lower lobes. There is flattening of the interventricular septum consistent with right heart strain. There are moderate subpleural bands and peripheral linear opacities consistent with recent Covid 19. No pleural effusion. No pneumothorax. There is no axillary or supraclavicular lymphadenopathy. There is no mediastinal lymphadenopathy. Heart size is normal. There are no coronary artery calcifications. No pericardial effusion. Aorta is normal in caliber. Limited views of the upper abdomen are unremarkable. There are no suspicious osseus lesions. IMPRESSION: 1. Segmental pulmonary in both lower lobes and flattening of the interventricular system consistent with right heart strain. 2. Moderate subpleural bands and peripheral linear opacities consistent with recent Covid 19 and potentially developing fibrosis. Critical findings called to Dr. Hammer by Dr. Rodriguez at 06/10/2021 at 7:33 p.m. Dictated by: Dictated on workstation # [id number] Dict: 06/10/211925 Trans: 06/10/211945 [facility] [id number] Interpreted by: EAGLE RODRIGUEZ MD Electronically signed by: EAGLE RODRIGUEZ MD 06/10/211945 Reviewed: Reviewed by Me (ALETHA HAMMER) Departure Impression Primary Impression: Pulmonary embolism, bilateral Disposition: HOME, SELF-CARE Condition: Stable Departure-Patient Inst. Decision time for Depature: 19:37 (ALETHA HAMMER) Referrals: PHILLIP BETHEA COMMUNICATION ANALYST (PCP/Family) Primary Care Physician Patient Instructions: Pulmonary Embolism (Blood Clot in the Lungs) (DC) Add. Discharge Instructions: Eliquis 5 milligrams twice a day for at least the next 3 months. Follow-up with your primary care doctor in the next 2 to 4 weeks to review anticoagulation and manage your symptoms. Return to the nearest ER for severe worsening shortness of air, chest pain or oxygen saturations consistently below 90% while at rest. No climbing on ladders, scaffolding, trees etc. Keep your feet on the ground and below your head at all times. Avoid unnecessary risks for head injuries. Wear helmets when bicycling and seatbelts when riding in a car. If you do sustain a head injury it is important that you follow-up with your doctor or the emergency room as appropriate as your risk for head bleed is increased while on blood thinners. If you have nosebleeds then apply 4 puffs of Afrin/oxymetazoline to each nostril and then clamped them closed. Sit up upright and spit out any bloody secretions. Do not swallow them as they can cause nausea. Clamp your nose for 40 minutes. Do not check and do not place anything in your nose such as a Kleenex, cotton etc. If you cannot get the bleeding to stop and return to the nearest ER and we will help you. All discharge instructions reviewed with patient and/or family. Voiced u nderstanding. Scripts Apixaban (Eliquis) 5 Mg Tablet 5 MG PO BID for 30 Days, #60 TAB 0 Refills Prov: ALETHA HAMMER 06/10/21 Work/School Note: Work Release Form Date Seen in the Emergency Department: Jun 10, 2021 Return to Work: Jun 15, 2021 Restrictions: No Restrictions Copy Copies To 1: CATHY BAHENA TIMOTHY D MD Jun 10, 2021 17:58 ALETHA HAMMER Jun 10, 2021 19:11
[2021-06-10] MEDS ORDERED: NS IV 1000 ML 1,000 ML IV ONE (18:00)
[2021-06-10 18:03] LABS: HEMATOCRIT 37 % (40-54); HEMOGLOBIN 13.1 g/dL (13.3-17.7); MEAN CORPUSCULAR HEMOGLOBIN 31 pg (25-34); MEAN CORPUSCULAR HGB CONC 35 g/dL (32-36); MEAN CORPUSCULAR VOLUME 88 fL (80-99); MEAN PLATELET VOLUME 8.3 fL (9.0-12.2); PLATELET COUNT 295 10^3/uL (130-400); WHITE BLOOD COUNT 9.3 10^3/uL (4.3-11.0)
[2021-06-10 18:04] LABS: BASOPHILS % (AUTO) 0 % (0-10); EOSINOPHILS # (AUTO) 0.3 10^3/uL (0.0-0.3); EOSINOPHILS % (AUTO) 3 % (0-10); LYMPHOCYTES # (AUTO) 2.1 X 10^3 (1.0-4.0); LYMPHOCYTES % (AUTO) 23 % (12-44); MONOCYTES # (AUTO) 0.7 X 10^3 (0.0-1.0); MONOCYTES % (AUTO) 8 % (0-12); NEUTROPHILS % (AUTO) 64 % (42-75)
[2021-06-10 18:24] LABS: BILIRUBIN,TOTAL 0.7 MG/DL (0.1-1.0); CALCIUM 8.7 MG/DL (8.5-10.1); CREATININE SERUM 0.98 MG/DL (0.60-1.30); TOTAL PROTEIN 6.8 GM/DL (6.4-8.2)
[2021-06-10 18:25] LABS: ALBUMIN 3.8 GM/DL (3.2-4.5)
[2021-06-10] MEDS ORDERED: IOHEXOL 350 MG/ML 150 ML (OMNIPAQUE 350) VIAL IV ONE (19:00)
[2021-06-10] MEDS ORDERED: HOLD METFORMIN - RECEIVED CONTRAST 20 ML VIAL IV SCH (19:00)
[2021-06-10] MEDS ORDERED: NS 100 ML (IVPB) BAG IV ONE (19:00)
--- NOTE | 2021-06-10 19:38 | Diagnostic Imaging Report ---
EXAMINATION: CT angiography of the chest. TECHNIQUE: Contrast enhanced thin section helical images were obtained through the chest with intravenous contrast timed for the optimal opacification of the arterial structures per CTA protocol. Post-processing, reconstructions and interpretation of angiographic images of the vessels was performed. 3D MIP reconstructions were performed and reviewed. All CT scans use one or more of the following dose optimizing techniques: automated exposure control, MA and/or KvP adjustment based on patient size and exam type or iterative reconstruction. HISTORY: Cough and shortness of breath, prior Covid 19. COMPARISON: None available. FINDINGS: There are segmental emboli in the lower lobes. There is flattening of the interventricular septum consistent with right heart strain. There are moderate subpleural bands and peripheral linear opacities consistent with recent Covid 19. No pleural effusion. No pneumothorax. There is no axillary or supraclavicular lymphadenopathy. There is no mediastinal lymphadenopathy. Heart size is normal. There are no coronary artery calcifications. No pericardial effusion. Aorta is normal in caliber. Limited views of the upper abdomen are unremarkable. There are no suspicious osseus lesions. IMPRESSION: 1. Segmental pulmonary in both lower lobes and flattening of the interventricular system consistent with right heart strain. 2. Moderate subpleural bands and peripheral linear opacities consistent with recent Covid 19 and potentially developing fibrosis. Critical findings called to Dr. Hammer by Dr. Hardy at 06/10/2021 at 7:33 p.m. Dictated by: Dictated on workstation # [id number]
[2021-06-10] MEDS ORDERED: APIXABAN 5 MG (ELIQUIS) TABLET PO ONE (19:45)
[2021-06-10] MEDS ORDERED: APIX5TAB PO (19:51)
[2021-06-10 20:05] VITALS: BP 123/85
== END 2021-06-10 20:05 | disposition home or self-care (01) ==
LOC: ER FS 17:13
DX: I26.99 Other pulmonary embolism without acute cor pulmonale (principal); R09.02 Hypoxemia; R00.0 Tachycardia, unspecified; R05.9 Cough, unspecified; Z86.16 Personal history of COVID-19; Z87.891 Personal history of nicotine dependence; Z99.81 Dependence on supplemental oxygen; Z79.82 Long term (current) use of aspirin; Z79.01 Long term (current) use of anticoagulants; Z79.899 Other long term (current) drug therapy
CPT/HCPCS: 36415; 71275; 80053; 85025; 85379; 86141